=== PATIENT | female | born 1975 | race Caucasian/White ===

== ENCOUNTER 2021-10-28 16:04 | Emergency (ER) | payer BC ==
[~2021-10-28] VITALS: Ht 160 cm; Wt 72.7 kg
[2021-10-28] MEDS ORDERED: METOCLOPRAMIDE INJ 10MG/2ML VIAL (J2765 PER 1) IV ONE (16:25)
[2021-10-28] MEDS ORDERED: diphenhydrAMINE 50MG/ML VIAL (J1200) IV ONE (16:25)
[2021-10-28] MEDS ORDERED: ACETAMINOPHEN 500 MG TAB PO ONE (16:25)
[2021-10-28 16:59] LABS: BASO # 0.1 10^3/uL (0.0-0.2); BASO % 0.5 % (0.0-1.0); EOS # 0.2 10^3/uL (0.0-0.5); EOS % 1.8 % (0.0-3.0); HEMATOCRIT 41.1 % (36.0-47.0); HEMOGLOBIN 14.2 g/dl (12.0-15.5); LYMPH # 3.3 10^3/uL (1.5-5.0); LYMPH % 32.9 % (24.0-44.0); MEAN CORPUSCULAR HEMOGLOBIN 28.1 pg (27.0-33.0); MEAN CORPUSCULAR HGB CONC 34.5 g/dl (32.0-36.5); MEAN CORPUSCULAR VOLUME 81.4 fl (80.0-96.0); MONO # 0.5 10^3/uL (0.0-0.8); MONO % 5.5 % (2.0-8.0); NEUTROPHILS # 5.8 10^3/uL (1.5-8.5); PLATELET COUNT, AUTOMATED 344 10^3/uL (150-450); RED BLOOD COUNT 5.05 10^6/uL (4.00-5.40); WHITE BLOOD COUNT 9.9 10^3/uL (4.0-10.0)
[2021-10-28 17:03] LABS: CK-MB VALUE MASS < 1.0 NG/ML (<3.6); CPK CREATINE PHOSPHOKINASE 77 U/L (26-192)
[2021-10-28 17:15] VITALS: BP 150/87
[2021-10-28] MEDS ORDERED: ATOR40TA75 PO (17:17)
[2021-10-28] MEDS ORDERED: AMLO1TAB25 PO (17:17)
[2021-10-28] MEDS ORDERED: SEMA14TA PO (17:17)
[2021-10-28] MEDS ORDERED: HUMU1INJ (17:17)
[2021-10-28] MEDS ORDERED: [UNRECOGNIZED DRUG - CODE] (17:17)
[2021-10-28] MEDS ORDERED: LISI5TAB11 PO (17:17)
[2021-10-28] MEDS ORDERED: OMEP-173 PO (17:17)
[2021-10-28] MEDS ORDERED: SERT50TA29 PO (17:17)
[2021-10-28 17:30] LABS: RSV AMPLIFICATION NEGATIVE (NEGATIVE)
[2021-10-28 17:35] LABS: ALBUMIN 3.6 GM/DL (3.2-5.2); ALT/SGPT 22 U/L (12-78); BILIRUBIN,DIRECT < 0.1 MG/DL (0.0-0.2); BILIRUBIN,TOTAL 0.4 MG/DL (0.2-1.0); BLOOD UREA NITROGEN 15 MG/DL (7-18); CALCIUM LEVEL 9.5 MG/DL (8.5-10.1); CARBON DIOXIDE LEVEL 24 MEQ/L (21-32); CHLORIDE LEVEL 102 MEQ/L (98-107); CREATININE FOR GFR 1.23 MG/DL (0.55-1.30); GLOMERULAR FILTRATION RATE 49.6 (>58); GLUCOSE, FASTING 328 MG/DL (70-100); LIPASE 410 U/L (73-393); POTASSIUM SERUM 4.5 MEQ/L (3.5-5.1); SODIUM LEVEL 138 MEQ/L (136-145); TOTAL PROTEIN 7.5 GM/DL (6.4-8.2)
== END 2021-10-28 17:25 | disposition left against medical advice (07) ==
LOC: M ED 16:04 → EDBD 16:04 → M ED 17:25
DX: R07.9 Chest pain, unspecified (principal); R51.9 Headache, unspecified; R10.9 Unspecified abdominal pain; R94.31 Abnormal electrocardiogram [ECG] [EKG]; E11.9 Type 2 diabetes mellitus without complications; I10 Essential (primary) hypertension; Z53.21 Procedure and treatment not carried out due to patient leaving prior to being seen by health care provider; Z90.49 Acquired absence of other specified parts of digestive tract; Z82.49 Family history of ischemic heart disease and other diseases of the circulatory system
CPT/HCPCS: 70450; 71045; 80048; 80076; 82550; 82553; 83690; 84443; 84484; 85025; 87631; 93005; 93041; 94760; 96374; 99284; J1200; J2765